=== PATIENT | male | born 1955 | race Caucasian/White ===

== ENCOUNTER 2017-03-16 12:25 | Emergency (ER) | payer OTHER ==
[~2017-03-16] VITALS: Ht 172.7 cm; Wt 94.0 kg
[~2017-03-16 12:25] MED LIST: ASPI81 PO; EZET10 PO; FENO50TA PO; LEVEMIR SQ; META800 PO; NEUR600T PO; NOVOLOGP2 SQ; PRIN10TA PO; TAB-TAB PO; TOPR50TA PO; VITA500T10 PO; WELC625T2 PO
[2017-03-16 12:27] VITALS: BP 177/78; PULSE 76; RESP 16; TEMP 98.6; O2SAT 96
[2017-03-16] MEDS ORDERED: LISI2.5T3 PO (13:14)
[2017-03-16] MEDS ORDERED: GABA600T PO (13:14)
[2017-03-16] MEDS ORDERED: ASPI81CH CHEW (13:14)
[2017-03-16] MEDS ORDERED: NOVONP2 SQ (13:14)
[2017-03-16] MEDS ORDERED: TOPR25TA PO (13:14)
[2017-03-16] MEDS ORDERED: MULT1TAB46 (13:14)
[2017-03-16] MEDS ORDERED: BACL10TA PO (13:14)
[2017-03-16] MEDS ORDERED: INSU1.2I SQ (13:14)
[2017-03-16] MEDS ORDERED: ALBI1INJ2 SQ (13:15)
--- NOTE | 2017-03-16 13:24 | PD ---
HPI Chief Complaint: Seizure Time Seen by Provider: 13:12 Travel History International Travel<30 days: No Contact w/Intl Traveler<30days: No Traveled to known affect area: No History of Present Illness HPI PATIENT STATED HE FELT LIKE HE HAD A SEIZURE BUT UPON FURTHER QUESTIONING, PATIENT WAS HAVING BODY JERKING MOVEMENT WHILE HE WAS AWARE, NO LOC AT ALL, AND ALSO C/O CHANDLER WELL. DENIES N/V/D/ABD OR CP. IT HAS NOW RESOLVED PFSH Past Medical History Hx Anticoagulant Therapy: Yes (PLAVIX) Blood Disorders: No Heart Rhythm Problems: Yes (palpitations) Cancer: No Cardiovascular Problems: Yes (TRIPLE BYPASS 2 MONTHS AGO) High Cholesterol: Yes Diabetes: Yes (METFORMIN 03/16/17) Patient Takes Glucophage: Yes (metformin) Genitourinary: No Hypertension: Yes Immune Disorder: No Medical other: Yes (GERD, GASTRIC ULCER DISEASE) Musculoskeletal: No Neurologic: No Psychiatric: No Reproductive: No Respiratory: Yes (SLEEP APNEA) Thyroid Disease: No Past Surgical History Cardiac Surgery: Yes (tripple bypass) Other Surgery: Yes Social History Alcohol Use: Yes (OCCASSIONAL) Tobacco Use: No Substance Use: No Allergies-Medications (Allergen,Severity, Reaction): Coded Allergies: No Known Allergies (Verified , 08/29/09) Reported Meds & Prescriptions Reported Meds & Active Scripts Active Reported Tanzeum 4-Pack Inj (Albiglutide) 50 Mg Pfpen 50 Mg SQ Q7D Naima Solostar Pen Inj (Insulin Glargine) 300 Unit/Ml Pen 1 Units SQ Baclofen 10 Mg Tab 10 Mg PO Q8HR Aspirin 81 Mg Chew 81 Mg CHEW DAILY Gabapentin 600 Mg Tab 600 Mg PO DAILY Novolin N Inj (Insulin Human NPH) 1,000 Unit/10 Ml Vial 45 Units SQ Q8HR Lisinopril 2.5 Mg Tab 2.5 Mg PO DAILY Toprol XL (Metoprolol Succinate) 25 Mg Tab 25 Mg PO DAILY Multi Vitamin Daily (Multiple Vitamin) 1 Tab Tab Review of Systems Except as stated in HPI: all other systems reviewed are Neg Physical Exam Narrative GENERAL: SKIN: Warm and dry. HEAD: Atraumatic. Normocephalic. EYES: Pupils equal and round. No scleral icterus. No injection or drainage. ENT: No nasal bleeding or discharge. Mucous membranes pink and moist. NECK: Trachea midline. No JVD. CARDIOVASCULAR: Regular rate and rhythm. RESPIRATORY: No accessory muscle use. Clear to auscultation. Breath sounds equal bilaterally. GASTROINTESTINAL: Abdomen soft, non-tender, nondistended. MUSCULOSKELETAL: Extremities without clubbing, cyanosis, or edema. No obvious deformities. NEUROLOGICAL: Awake and alert. No obvious cranial nerve deficits. Motor grossly within normal limits. Five out of 5 muscle strength in the arms and legs. Normal speech. PSYCHIATRIC: Appropriate mood and affect; insight and judgment normal. Data Data Last Documented VS Vital Signs Date Time Temp Pulse Resp B/P (MAP) Pulse Ox O2 Delivery O2 Flow Rate FiO2 03/16/17:30 17 98 Room Air 03/16/17: 97.8 70 Orders Orders Electrocardiogram (03/16/17:20) Complete Blood Count With Diff (03/16/17:20) Comprehensive Metabolic Panel (03/16/17:20) Creatine Kinase (Cpk) (03/16/17:20) Prothrombin Time / Inr (Pt) (03/16/17:20) Act Partial Throm Time (Ptt) (03/16/17:20) Troponin I (03/16/17:20) Thyroid Stimulating Hormone (03/16/17 13:20) Urinalysis - C+S If Indicated (03/16/17 13:20) Ct Brain W/O Iv Contrast(Rout) (03/16/17 13:20) Blood Glucose (03/16/17 13:20) Ecg Monitoring (03/16/17:20) Iv Access Insert/Monitor (03/16/17:20) Oximetry (03/16/17:20) Sodium Chloride 0.9% Flush (Ns Flush) (03/16/17 13:30) Drug Screen, Random Urine (03/16/17:20) Alcohol (Ethanol) (03/16/17:20) Tylenol (Acetaminophen) (03/16/17 13:20) Salicylates (Aspirin) (03/16/17 13:20) Labs Laboratory Tests Test 03/16/17 13:25 White Blood Count 6.9 TH/MM3 Red Blood Count 4.31 MIL/MM3 Hemoglobin 12.9 GM/DL Hematocrit 38.1 % Mean Corpuscular Volume 88.5 FL Mean Corpuscular Hemoglobin 29.9 PG Mean Corpuscular Hemoglobin Concent 33.8 % Red Cell Distribution Width 15.3 % Platelet Count 170 TH/MM3 Mean Platelet Volume 8.8 FL Neutrophils (%) (Auto) 52.0 % Lymphocytes (%) (Auto) 34.8 % Monocytes (%) (Auto) 10.6 % Eosinophils (%) (Auto) 1.9 % Basophils (%) (Auto) 0.7 % Neutrophils # (Auto) 3.6 TH/MM3 Lymphocytes # (Auto) 2.4 TH/MM3 Monocytes # (Auto) 0.7 TH/MM3 Eosinophils # (Auto) 0.1 TH/MM3 Basophils # (Auto) 0.0 TH/MM3 CBC Comment DIFF FINAL Differential Comment Prothrombin Time 11.4 SEC Prothromb Time International Ratio 1.0 RATIO Activated Partial Thromboplast Time 26.4 SEC Blood Urea Nitrogen 12 MG/DL Creatinine 0.99 MG/DL Random Glucose 172 MG/DL Total Protein 7.9 GM/DL Albumin 3.5 GM/DL Calcium Level 9.0 MG/DL Alkaline Phosphatase 58 U/L Aspartate Amino Transf (AST/SGOT) 38 U/L Alanine Aminotransferase (ALT/SGPT) 73 U/L Total Bilirubin 0.4 MG/DL Sodium Level 137 MEQ/L Potassium Level 4.4 MEQ/L Chloride Level 103 MEQ/L Carbon Dioxide Level 28.0 MEQ/L Anion Gap 6 MEQ/L Estimat Glomerular Filtration Rate 76 ML/MIN Total Creatine Kinase 194 U/L Troponin I LESS THAN 0.02 NG/ML Thyroid Stimulating Hormone 3rd Gen 3.040 uIU/ML Salicylates Level LESS THAN 1.7 MG/DL Acetaminophen Level LESS THAN 2.0 MCG/ML Ethyl Alcohol Level LESS THAN 3 MG/DL MDM Medical Decision Making Medical Screen Exam Complete: Yes Emergency Medical Condition: Yes Medical Record Reviewed: Yes Interpretation(s) NSR 68, LAFB, NO STEMI PATTERN Differential Diagnosis ICH V RHABDO V ELECTROLYTE ABNL V MYOCLONIC JERKS V FASCICULATIONS Narrative Course NO E/O RHABDO, OR ELECTROLYTE ABNL, CT HEAD NEG FOR ICH. WILL D/C HOME AND REFER TO A NEUROLOGIST FOR FURTHER OUTPATIENT EVALUATION Diagnosis Primary Impression: MEDICAL CLEARANCE Referrals: Jude Bello MD PLEASE MAKE APPOINTMENT TO FOLLOW UP WITH NEUROLOGIST FOR FURTHER EVALUATION Additional Instructions: TODAY CAT SCAN DID NOT SHOW ANY BRAIN BLEED OR BRAIN MASS, NORMAL ELECTROLYTES, NORMAL LIVER/KIDNEY FUNCTIONS FOR YOUR AGE. PLEASE MAKE A FOLLOWUP APPOINTMENT FOR FURTHER EVALUATION WITH A NEUROLOGIST Disposition: 01 DISCHARGE HOME Condition: Stable Guru Marion MD Mar 16, 2017 13:24
[2017-03-16 13:30] VITALS: BP 169/72; PULSE 70; RESP 17; TEMP 97.8; O2SAT 98; O2SAT 99
[2017-03-16] MEDS ORDERED: SODIUM CHLORIDE 0.9% FLUSH 5 ML FLUSH IV FLUSH PRN (13:30)
[2017-03-16 13:44] LABS: AUTOMATED NEUTROPHIL # 3.6 TH/MM3 (1.8-7.7); BASOPHIL % 0.7 % (0.0-2.0); EOSINOPHIL # 0.1 TH/MM3 (0-0.4); EOSINOPHIL % 1.9 % (0.0-4.0); HEMATOCRIT 38.1 % (39.0-51.0); HEMO FLAGS DIFF FINAL; LYMPH % 34.8 % (9.0-44.0); LYMPHOCYTE # 2.4 TH/MM3 (1.0-4.8); MEAN CELL VOLUME 88.5 FL (80.0-100.0); MEAN CORPUSCULAR HEMOGLOBIN 29.9 PG (27.0-34.0); MEAN CORPUSCULAR HGB CONC 33.8 % (32.0-36.0); MONO % 10.6 % (0.0-8.0); PLATELET COUNT 170 TH/MM3 (150-450); RED BLOOD COUNT 4.31 MIL/MM3 (4.50-5.90); RED CELL DISTRIBUTION WIDTH 15.3 % (11.6-17.2); WHITE BLOOD COUNT 6.9 TH/MM3 (4.0-11.0)
[2017-03-16 13:54] LABS: APTT (PATIENT) 26.4 SEC (24.3-30.1); PROTHROMBIN TIME - PATIENT 11.4 SEC (9.8-11.6)
[2017-03-16 14:03] LABS: ALT (GPT) 73 U/L (12-78); ANION GAP 6 MEQ/L (5-15); AST (GOT) 38 U/L (15-37); BLOOD UREA NITROGEN 12 MG/DL (7-18); CHLORIDE 103 MEQ/L (98-107); GLOMERULAR FILTRATION RATE 76 ML/MIN (>89); POTASSIUM 4.4 MEQ/L (3.5-5.1); SODIUM (NA) 137 MEQ/L (136-145)
[2017-03-16 14:08] LABS: ALCOHOL LESS THAN 3 MG/DL (0-5)
[2017-03-16 14:14] LABS: ALKALINE PHOSPHATASE 58 U/L (45-117); CREATINE KINASE 194 U/L (39-308); TOTAL BILIRUBIN ADULT 0.4 MG/DL (0.2-1.0)
[2017-03-16 14:19] LABS: ACETAMINOPHEN LESS THAN 2.0 MCG/ML (10.0-30.0)
--- NOTE | 2017-03-16 14:31 | RADRPT ---
EXAM DATE/TIME: 03/16/2017 14:15 [facility] COMPARISON: No previous studies available for comparison. INDICATIONS : Cephalgia; body jerks. RADIATION DOSE: 37.50 CTDIvol (mGy) MEDICAL HISTORY : Cardiovascular disease. Hypertension. SURGICAL HISTORY : None. ENCOUNTER: Initial ACUITY: 1 day PAIN SCALE: 4/10 LOCATION: cranial TECHNIQUE: Multiple contiguous axial images were obtained of the head. Using automated exposure control and adj ustment of the mA and/or kV according to patient size, radiation dose was kept as low as reasonably a chievable to obtain optimal diagnostic quality images. DICOM format image data is available electro nically for review and comparison. FINDINGS: Patchy mild diminished attenuation in the deep white matter structures may be chronic ischemic in chantel ology. No evidence of intracranial mass or hemorrhage. Nothing to suggest acute infarction. Extracran ial structures are benign and intact. CONCLUSION: No acute intracranial findings El Silva MD on March 16, 2017 at 14:27 Board Certified Radiologist. This report was verified electronically.
[2017-03-16 15:00] VITALS: BP_SYST 150; TEMP 97.8
--- NOTE | 2017-03-17 06:03 | EKG ---
Date Performed: 03/16/2017 Time Performed: 13:24:28 PTAGE: 61 years EKG: Sinus rhythm LEFT ANTERIOR FASCICULAR BLOCK POSSIBLE LATERAL MYOCARDIAL INFARCTION ABNORMAL ECG INTERPRETATION BA SED ON A DEFAULT AGE OF 38 YEARS PREVIOUS TRACING : 02/07/2008 06.12 DOCTOR: Marcelo Chandler Interpretating Date/Time 03/17/2017 05:58:27
== END 2017-03-16 15:01 | disposition home or self-care (01) ==
LOC: NEPE 12:25
DX: R51 Headache (principal); R94.31 Abnormal electrocardiogram [ECG] [EKG]; E11.9 Type 2 diabetes mellitus without complications; Z79.01 Long term (current) use of anticoagulants; Z79.4 Long term (current) use of insulin
CPT/HCPCS: 70450; 80053; 80307; 82550; 84443; 84484; 85025; 85610; 85730; 93005